=== PATIENT | male | born 1980 | race African-American/Black ===

== ENCOUNTER 2022-02-13 15:56 | Emergency (ER) | payer MEDICAID ==
[~2022-02-13] VITALS: Ht 170.2 cm; Wt 61.0 kg
[2022-02-13 16:08] VITALS: BP 110/75
[2022-02-13] MEDS ORDERED: IBUP-2029 MT (17:37)
[2022-02-13] MEDS ORDERED: PENI500T MT (17:37)
== END 2022-02-13 17:44 | disposition home or self-care (01) ==
LOC: ER 15:56
DX: K08.89 Other specified disorders of teeth and supporting structures (principal); F12.10 Cannabis abuse, uncomplicated
CPT/HCPCS: 99283